=== PATIENT | female | born 1945 | race Caucasian/White ===

== ENCOUNTER 2020-10-06 21:48 | Inpatient (IN) | payer OTHER ==
[2020-10-06 22:12] VITALS: BMI 29.8
[2020-10-06] MEDS ORDERED: ACETAMINOPHEN 1000 MG/100 ML BAG IVPB ONE (22:40)
[2020-10-06] MEDS ORDERED: SODIUM CHLORIDE 0.9% 500 ML INFUS.BAG IV ONE (22:42)
[2020-10-06] MEDS ORDERED: ACETAMINOPHEN INJECTION 100 ML IVPB ONE (22:49)
[2020-10-06 23:09] LABS: BASO % 0.3 % (0-2.0); EOS % 0.2 % (0-4.5); HEMATOCRIT 40.7 % (32.4-45.2); HEMOGLOBIN 13.9 GM/dL (10.7-15.3); LYMPH % 8.6 % (8-40); MCH 32.8 pg (25.7-33.7); MEAN CELL VOLUME 96.3 fl (80-96); MEAN PLT VOLUME 9.5 fl (7.5-11.1); MONO % 6.2 % (3.8-10.2); NEUT % 84.7 % (42.8-82.8); PLATELET COUNT 145 10^3/uL (134-434); RBC 4.23 M/mm3 (3.60-5.2); RDW 12.9 % (11.6-15.6); WHITE BLOOD COUNT 14.1 K/mm3 (4.0-10.0)
[2020-10-06] MEDS ORDERED: ONDANSETRON 4 MG/2 ML VIAL ONE (23:21)
[2020-10-06] MEDS ORDERED: ONDANSETRON 4 MG TABLET PO ONE (23:21)
[2020-10-06 23:25] LABS: URINE APPEARANCE Clear; URINE BILIRUBIN Negative (NEGATIVE); URINE COLOR Yellow; URINE GLUCOSE (UA) Negative (NEGATIVE); URINE KETONE 3+ (NEGATIVE); URINE LEUK ESTERASE Negative (NEGATIVE); URINE NITRITE Negative (NEGATIVE); URINE PROTEIN 1+ (NEGATIVE); URINE UROBILINOGEN 0.2 mg/dL (0.2-1.0)
[2020-10-06 23:53] LABS: CHLORIDE 109 mmol/L (98-107); SODIUM 142 mmol/L (136-145)
[2020-10-06 23:56] LABS: ALBUMIN 3.7 g/dl (3.4-5.0); ANION GAP 9 MMOL/L (8-16); CALCIUM 8.9 mg/dL (8.5-10.1); CO2 24 mmol/L (21-32); GLUCOSE,RANDOM 124 mg/dL (74-106); MAGNESIUM 2.3 mg/dL (1.8-2.4)
[2020-10-06 23:57] LABS: BLOOD UREA NITROGEN 29.4 mg/dL (7-18)
[2020-10-07] MEDS ORDERED: LIDOCAINE 5% TOPICAL PATCH TP ONE (00:12)
[2020-10-07] MEDS ORDERED: morphine CARPU-JECT 2 MG/1 ML DISP.SYRIN IVPUSH ONE (00:12)
[2020-10-07] MEDS ORDERED: diazePAM 5 MG TABLET PO ONE (00:12)
[2020-10-07] MEDS ORDERED: diazePAM 5 MG TABLET ONE (00:17)
[2020-10-07] MEDS ORDERED: LIDOCAINE 5% TOPICAL PATCH ONE (00:17)
[2020-10-07] MEDS ORDERED: FOLIC ACID INJECTION - 1 MG, THIAMINE HCL 100 MG, MULTIVIT INJECTION ADULT 10 ML in SOD... IVPB ONE (00:40)
[2020-10-07 01:31] LABS: CHOLESTEROL 167 mg/dL (50-200); CREATININE 0.6 mg/dL (0.55-1.3); LDL CHOLESTEROL (ONLY SJRH) 83 mg/dL (5-100); PHOSPHOROUS 3.2 mg/dL (2.5-4.9); TRIGLYCERIDES 53 mg/dL (0-150)
[2020-10-07 01:32] LABS: ALK PHOS 101 U/L (45-117); BILIRUBIN,TOTAL 0.9 mg/dL (0.2-1); HDL CHOLESTEROL 71 mg/dL (40-60); SGOT/AST 67 U/L (15-37); SGPT/ALT 30 U/L (13-61); TOT PROT 8.6 g/dl (6.4-8.2)
[2020-10-07] MEDS ORDERED: ACETAMINOPHEN 325 MG TABLET (FP) PO PRN (05:45)
[2020-10-07] MEDS ORDERED: SODIUM CHLORIDE 1,000 ML IV SCH (05:45)
[2020-10-07 07:12] LABS: HEMATOCRIT 36.3 % (32.4-45.2); HEMOGLOBIN 12.1 GM/dL (10.7-15.3); MCH 32.4 pg (25.7-33.7); MCHC 33.4 g/dl (32.0-36.0); MEAN CELL VOLUME 96.8 fl (80-96); MEAN PLT VOLUME 8.7 fl (7.5-11.1); PLATELET COUNT 124 10^3/uL (134-434); RBC 3.75 M/mm3 (3.60-5.2); WHITE BLOOD COUNT 10.7 K/mm3 (4.0-10.0)
[2020-10-07] MEDS ORDERED: LIDOCAINE PATCH REMOVAL MC ONE (12:00)
[2020-10-07] MEDS ORDERED: ENOXAPARIN NA (PORCINE) 40 MG/0.4 ML DISP.SYRIN SQ ONE (12:53)
[2020-10-07] MEDS: ENOXAPARIN NA (PORCINE) 40 MG/0.4 ML DISP.SYRIN SQ SCH (13:31)
[2020-10-07 13:56] LABS: CALCIUM 8.3 mg/dL (8.5-10.1)
[2020-10-07 13:57] LABS: MAGNESIUM 2.2 mg/dL (1.8-2.4)
[2020-10-07 14:00] LABS: CREATININE 0.7 mg/dL (0.55-1.3); PHOSPHOROUS 2.3 mg/dL (2.5-4.9)
[2020-10-07 14:01] LABS: BILIRUBIN,TOTAL 0.6 mg/dL (0.2-1)
[2020-10-07 14:28] LABS: TOT PROT 6.3 g/dl (6.4-8.2)
[2020-10-07] MEDS ORDERED: POTASSIUM PHOSPHATE 15 MM in SODIUM CHLORIDE 250 ML IVPB ONE (18:30)
[2020-10-07] MEDS ORDERED: ACETAMINOPHEN 325 MG TABLET (FP) ONE (20:30)
[2020-10-08 07:48] LABS: BASO % 0.4 % (0-2.0); EOS % 1.1 % (0-4.5); HEMATOCRIT 34.7 % (32.4-45.2); HEMOGLOBIN 11.6 GM/dL (10.7-15.3); LYMPH % 36.7 % (8-40); MCH 32.8 pg (25.7-33.7); MCHC 33.6 g/dl (32.0-36.0); MEAN CELL VOLUME 97.8 fl (80-96); MEAN PLT VOLUME 9.5 fl (7.5-11.1); NEUT % 55.8 % (42.8-82.8); PLATELET COUNT 119 10^3/uL (134-434); RBC 3.55 M/mm3 (3.60-5.2); WHITE BLOOD COUNT 6.8 K/mm3 (4.0-10.0)
[2020-10-08 08:20] LABS: CALCIUM 7.9 mg/dL (8.5-10.1)
[2020-10-08 08:21] LABS: BLOOD UREA NITROGEN 29.8 mg/dL (7-18)
[2020-10-08 08:24] LABS: CREATININE 0.5 mg/dL (0.55-1.3); PHOSPHOROUS 2.4 mg/dL (2.5-4.9)
[2020-10-08] MEDS: ENOXAPARIN NA (PORCINE) 40 MG/0.4 ML DISP.SYRIN SQ SCH (11:05)
[2020-10-08] MEDS ORDERED: SODIUM CHLORIDE 1,000 ML IV SCH (12:15)
[2020-10-08 13:01] VITALS: TEMP 98.4
[2020-10-08 15:31] VITALS: BP 132/60; PULSE 68
== END 2020-10-08 18:58 | disposition home or self-care (01) | DRG 312 ==
LOC: JER 21:48 → JERBED 23:00 → J4W 10-07 22:51
PROVIDERS: ADMIT Internal Medicine
DX: R55 Syncope and collapse (principal); S22.008A Other fracture of unspecified thoracic vertebra, initial encounter for closed fracture; N17.9 Acute kidney failure, unspecified; I10 Essential (primary) hypertension; E78.5 Hyperlipidemia, unspecified; T79.6XXA Traumatic ischemia of muscle, initial encounter; W18.39XA Other fall on same level, initial encounter; Y92.098 Other place in other non-institutional residence as the place of occurrence of the external cause; D72.829 Elevated white blood cell count, unspecified; M54.5 Low back pain
CPT/HCPCS: 36415; 70450-TC; 70551-TC; 71046-TC-FY; 72125-TC; 72128-TC; 72146-TC; 72148-TC; 73523-TC-FY; 76775-TC; 80048; 80053; 80061; 81003; 82550; 82553; 82607; 83036; 83735; 83970; 84100; 84439; 84443; 84484; 85025; 85027; 86780; 87086; 93005; 93010; 93306-TC; 93880-TC; 97116-GP; 97161-GP; 99285-25; C9803; J0131; U0003; U0005

== ENCOUNTER 2024-07-11 19:44 | Inpatient (IN) | payer OTHER ==
[2024-07-11 20:19] VITALS: BMI 19.7
[2024-07-11] MEDS ORDERED: ACETAMINOPHEN 325 MG TABLET (FP) ONE (21:27)
[2024-07-11] MEDS: ACETAMINOPHEN 500 MG TABLET (FP) PO ONE (21:30)
[2024-07-12] MEDS ORDERED: KETOROLAC TROMETHAMINE 30 MG/1 ML VIAL ONE (00:31)
[2024-07-12] MEDS: KETOROLAC TROMETHAMINE 15 MG/ML VIAL IVPUSH ONE (00:38)
[2024-07-12] MEDS ORDERED: MORPHINE SULFATE 2 MG/ML SYRINGE IVPUSH PRN (01:10)
[2024-07-12] MEDS: ENOXAPARIN NA (PORCINE) 40 MG/0.4 ML DISP.SYRIN SQ SCH (10:49)
[2024-07-12] MEDS: HYDROCHLOROTHIAZIDE 25 MG TABLET (FP) PO SCH (10:50)
[2024-07-12 11:36] LABS: HEMATOCRIT 29.3 % (34.1-44.9); HEMOGLOBIN 9.7 g/dL (11.2-15.7); MCHC 33.1 g/dl (32.2-35.5); MEAN CELL VOLUME 100.7 fl (79.4-94.8); PLATELET COUNT 116 x10^3/uL (182-369); RDW 14.3 % (12.5-17.0)
[2024-07-12 11:53] LABS: POTASSIUM 3.5 mmol/L (3.5-5.1)
[2024-07-12 11:57] LABS: CALCIUM 9.2 mg/dL (8.5-10.1)
[2024-07-12 11:58] LABS: ALBUMIN 2.9 g/dl (3.4-5.0); BLOOD UREA NITROGEN 36.4 mg/dL (7-18); MAGNESIUM 2.4 mg/dL (1.8-2.4)
[2024-07-12 12:00] LABS: CREATININE 0.6 mg/dL (0.55-1.3)
[2024-07-12 12:03] LABS: BILIRUBIN,TOTAL 0.5 mg/dL (0.2-1); TOT PROT 5.8 g/dl (6.4-8.2)
[2024-07-13 07:36] LABS: HEMATOCRIT 30.9 % (34.1-44.9); HEMOGLOBIN 9.9 g/dL (11.2-15.7); MEAN PLT VOLUME 11.1 fl (9.4-12.3); PLATELET COUNT 114 x10^3/uL (182-369); RDW 14.5 % (12.5-17.0)
[2024-07-13 07:53] LABS: POTASSIUM 3.8 mmol/L (3.5-5.1)
[2024-07-13 07:55] LABS: CALCIUM 9.1 mg/dL (8.5-10.1)
[2024-07-13 07:56] LABS: ALBUMIN 3.1 g/dl (3.4-5.0); BLOOD UREA NITROGEN 29.6 mg/dL (7-18); MAGNESIUM 2.2 mg/dL (1.8-2.4)
[2024-07-13 07:59] LABS: CREATININE 0.6 mg/dL (0.55-1.3)
[2024-07-13 08:00] LABS: BILIRUBIN,TOTAL 0.4 mg/dL (0.2-1); TOT PROT 6.2 g/dl (6.4-8.2)
[2024-07-13] MEDS: HYDROCHLOROTHIAZIDE 25 MG TABLET (FP) PO SCH (10:39)
[2024-07-13] MEDS ORDERED: ACETAMINOPHEN 325 MG TABLET (FP) PO PRN (17:12)
[2024-07-14 08:11] LABS: HEMATOCRIT 29.6 % (34.1-44.9); HEMOGLOBIN 9.7 g/dL (11.2-15.7); MCHC 32.8 g/dl (32.2-35.5); MEAN CELL VOLUME 102.4 fl (79.4-94.8); MEAN PLT VOLUME 11.4 fl (9.4-12.3); PLATELET COUNT 106 x10^3/uL (182-369); RDW 14.2 % (12.5-17.0)
[2024-07-14 08:28] LABS: POTASSIUM 3.9 mmol/L (3.5-5.1)
[2024-07-14 08:35] LABS: ALBUMIN 2.7 g/dl (3.4-5.0); BLOOD UREA NITROGEN 17.9 mg/dL (7-18)
[2024-07-14 08:37] LABS: BILIRUBIN,TOTAL 0.5 mg/dL (0.2-1); CALCIUM 9.1 mg/dL (8.5-10.1)
[2024-07-14 08:38] LABS: CREATININE 0.5 mg/dL (0.55-1.3); MAGNESIUM 2.1 mg/dL (1.8-2.4)
[2024-07-14] MEDS: ACETAMINOPHEN 325 MG TABLET (FP) PO PRN (10:56)
[2024-07-15 08:31] LABS: HEMATOCRIT 29.5 % (34.1-44.9); HEMOGLOBIN 9.5 g/dL (11.2-15.7); MCHC 32.2 g/dl (32.2-35.5); MEAN CELL VOLUME 101.7 fl (79.4-94.8); MEAN PLT VOLUME 11.1 fl (9.4-12.3); PLATELET COUNT 130 x10^3/uL (182-369)
[2024-07-15 08:50] LABS: POTASSIUM 3.6 mmol/L (3.5-5.1)
[2024-07-15 08:58] LABS: ALBUMIN 2.8 g/dl (3.4-5.0); BLOOD UREA NITROGEN 22.9 mg/dL (7-18); CREATININE 0.5 mg/dL (0.55-1.3)
[2024-07-15 08:59] LABS: BILIRUBIN,TOTAL 0.5 mg/dL (0.2-1); TOT PROT 6.2 g/dl (6.4-8.2)
[2024-07-15 09:06] LABS: CALCIUM 9.5 mg/dL (8.5-10.1)
[2024-07-16 07:28] LABS: HEMATOCRIT 30.3 % (34.1-44.9); HEMOGLOBIN 9.8 g/dL (11.2-15.7); MCHC 32.3 g/dl (32.2-35.5); MEAN CELL VOLUME 101.7 fl (79.4-94.8)
[2024-07-16 07:30] LABS: MEAN PLT VOLUME 10.8 fl (9.4-12.3); PLATELET COUNT 141 x10^3/uL (182-369)
[2024-07-16 07:49] LABS: CALCIUM 9.1 mg/dL (8.5-10.1)
[2024-07-16 07:50] LABS: ALBUMIN 2.7 g/dl (3.4-5.0); BLOOD UREA NITROGEN 22.8 mg/dL (7-18)
[2024-07-16 07:53] LABS: CREATININE 0.5 mg/dL (0.55-1.3)
[2024-07-16 07:54] LABS: BILIRUBIN,TOTAL 0.5 mg/dL (0.2-1)
[2024-07-16 07:55] LABS: TOT PROT 6.2 g/dl (6.4-8.2)
[2024-07-16] MEDS: oxyCODONE HCL 5 MG TABLET PO PRN (18:57)
[2024-07-16 22:28] VITALS: RESP 18
[2024-07-17 07:41] LABS: HEMATOCRIT 32.1 % (34.1-44.9); HEMOGLOBIN 10.3 g/dL (11.2-15.7); MCHC 32.1 g/dl (32.2-35.5); MEAN CELL VOLUME 102.2 fl (79.4-94.8); MEAN PLT VOLUME 10.5 fl (9.4-12.3); PLATELET COUNT 159 x10^3/uL (182-369); RDW 13.7 % (12.5-17.0)
[2024-07-17 07:58] LABS: POTASSIUM 3.5 mmol/L (3.5-5.1)
[2024-07-17 08:00] LABS: CALCIUM 9.2 mg/dL (8.5-10.1)
[2024-07-17 08:01] LABS: ALBUMIN 2.8 g/dl (3.4-5.0); BLOOD UREA NITROGEN 28.3 mg/dL (7-18); MAGNESIUM 1.9 mg/dL (1.8-2.4)
[2024-07-17 08:04] LABS: CREATININE 0.4 mg/dL (0.55-1.3)
[2024-07-17 08:05] LABS: BILIRUBIN,TOTAL 0.5 mg/dL (0.2-1); TOT PROT 6.3 g/dl (6.4-8.2)
[2024-07-17] MEDS ORDERED: oxyCODONE HCL 5 MG TABLET PO PRN (08:46)
[2024-07-17 13:38] VITALS: BP 128/53; PULSE 84; TEMP 98.1
[2024-07-17] MEDS: ACETAMINOPHEN 325 MG TABLET (FP) PO SCH (14:10)
== END 2024-07-17 15:20 | DRG 563 ==
LOC: JER 19:44 → JERBED 21:53 → J7W 07-12 02:04 → OBSVTOIN 07-12 11:06
PROVIDERS: ADMIT Hospitalist; ATTEND Internal Medicine
DX: S42.351A Displaced comminuted fracture of shaft of humerus, right arm, initial encounter for closed fracture (principal); D53.9 Nutritional anemia, unspecified; D69.6 Thrombocytopenia, unspecified; R00.1 Bradycardia, unspecified; W19.XXXA Unspecified fall, initial encounter; Y93.9 Activity, unspecified; Y92.89 Other specified places as the place of occurrence of the external cause; Y99.9 Unspecified external cause status
CPT/HCPCS: 36415; 73030-TC-RT-FY; 80053; 82607; 82728; 82746; 83540; 83550; 83735; 85027; 93005; 93010; 97116-GP; 97161-GP; 99285-25; G0378